=== PATIENT | male | born 1950 | race Caucasian/White ===

== ENCOUNTER 2020-12-27 19:42 | Emergency (ER) | payer MEDICARE, OTHER, SELFPAY ==
[2020-12-27 20:05] VITALS: BP 169/75; PULSE 64; RESP 16; TEMP 36.8; O2SAT 95; BMI 29.7
--- NOTE | 2020-12-27 22:10 | ED_ITS ---
HPI - Abdominal Pain General: Chief Complaint: Abdominal Pain Stated Complaint: Vomitting Time Seen by Provider: 12/27/20 22:01 Source: patient Mode of arrival: ambulatory Limitations: no limitations History of Present Illness: HPI narrative: Patient is a nice 70-year-old male who presents to ED today along with his for complaints of left abdominal and flank pain. Patient tells me around 11 AM this afternoon he began having fairly sudden onset left abdominal pain radiating into his left flank. He immediately began feeling nauseous secondary to the pain. He has had multiple episodes of nonbloody emesis. Patient is reporting normal bowel habits. He denies dysuria, frequency, urgency, hesitancy, or hematuria. He states he does have a history of kidney stones and states his symptoms today feel similar to what he has experienced in the past. No fevers. No trauma. MD elicited complaint: abdominal pain Pertinent past history: kidney stones Onset (ago): hour(s) Pain Consistency: constant Location: L flank Severity: severe Quality: sharp Radiation: LUQ, LLQ and L flank Exacerbating factors: nothing Relieving factors: nothing Associated Symptoms: Reports nausea and vomiting; Denies change in bowel habits, change in stool character, chills, constipation, diarrhea, dysuria, fever(s), heartburn and hematemesis Review of Systems Const: Denies: fever(s), chills, body aches, fatigue or malaise Eyes: Denies: change in vision Card: Denies: chest pain Resp: Denies: dyspnea GI: Reports: abdominal pain, nausea and vomiting; Denies: hematemesis, heartburn, diarrhea, constipation, change in bowel habits or change in stool character : Reports: flank pain; Denies: difficulty urinating, dysuria, urinary frequency, urinary urgency or urinary hesitancy Musc: Reports: back pain; Denies: neck pain, extremity pain, extremity swelling, joint pain or joint swelling Skin/Breast: Denies: rash Neuro: Denies: headache(s), numbness in extremities, weakness in extremities, sensory changes or dizziness Physical Exam Const: COMMON NORMALS: no acute distress, average body habitus, patient oriented x3, no limitations, healthy appearing, alert and well nourished GENERAL APPEARANCE: cooperative Chest: COMMONS NORMALS: normal inspection of the chest and normal palpation of entire chest wall Resp: COMMON NORMALS: normal respiratory effort and clear to auscultation bi laterally AUSCULTATION: clear to auscultation bilaterally Cardio: COMMON NORMALS: regular rate and regular rhythm RATE: regular rate RHYTHM: regular rhythm GI: COMMON NORMALS: Normal to inspection, nondistended, normoactive bowel sounds present, Soft to palpation, No hepatosplenomegaly present and no masses PALPATION: Yes Soft to palpation, Yes Tenderness to palpation present (GI) (mild left sided), No Guarding due to palpation present (GI), No Rigid due to palpation and Yes No hepatosplenomegaly present : BLADDER/KIDNEY EXAM: Yes CVA tenderness on the left Back/Pelvis: COMMON NORMALS: thoracic and lumbar spine normal to inspection, no thoracic nor lumbar tenderness and thoraco-lumbar ROM normal GENERAL BACK: Yes CVA tenderness Extremity: COMMON NORMALS: normal to inspection GENERAL: Yes normal exam except as noted Neuro: COMMON NORMALS: patient oriented x3 SENSORIUM/ORIENTATION: Yes alert Skin: COMMON NORMALS: no rashes or lesions noted GENERAL SKIN EXAM: no rashes or lesions noted TRAUMA: no lacerations or abrasions Course Vital Signs: Vital signs: Vital Signs Temperature 98.2 F 12/27/20 20:05 Pulse Rate 64 12/27/20 20:05 Respiratory Rate 16 12/27/20 23:37 Blood Pressure 169/75 12/27/20 20:05 Pulse Oximetry 100 12/27/20 23:37 MDM - Abdominal Pain MDM Narrative: Medical decision making narrative: Vital signs are stable. Labs are unremarkable. UA showing hematuria but no obvious infection. CT scan does show a 3.7 mm proximal ureter stone with moderate left hydro. Pain is controllable here. He states he is from [place] and will follow up with urology as soon as he returns-states they are headed back home tomorrow. Was given prescription for pain/nausea meds and Flomax. Given a urine strainer. Strict return to ED precautions given. Patient and verbalized understanding. Lab Data: Attestation: I reviewed the patient's lab results. Labs: Lab Results 12/27/20 12/27/20 12/27/20 Range/Units 22:44 22:44 22:59 WBC 11.8 H (4.0-10.0) 10^3/ uL RBC 5.06 (4.1-5.3) 10^6/u L Hgb 14.0 (11.7-16.6) g/dL Hct 43.7 (42.0-52.0) % MCV 86.4 (80-94) fL MCH 27.7 L (28.0-34.0) pg MCHC 32.0 (30.0-36.0) g/dL RDW 15.3 H (12.1-15.1) % Plt Count 232 (130-400) 10^3/c mm MPV 10.4 (7.4-10.4) fL Neut % (Auto) 84.9 % Lymph % (Auto) 7.5 % [place] % (Auto) 6.9 % Eos % (Auto) 0.1 % Baso % (Auto) 0.3 % Neut # (Auto) 10.01 H (1.8-7.7) 10^3/u L Lymph # (Auto) 0.9 (0.8-4.8) 10^3/u L [place] # (Auto) 0.8 (0.2-0.9) 10^3/u L Eos # (Auto) 0.0 (0.0-0.8) 10^3/u L Baso # (Auto) 0.0 (0.0-0.1) 10^3/u L Nucleated RBC % (a uto) 0 % Nucleated RBCs # 0.0 /100WBC Sodium 141 (136-145) mmol/L Potassium 4.0 (3.5-5.1) mmol/L Chloride 104 (98-107) mmol/L Carbon Dioxide 23 (22-29) mmol/L Anion Gap 18.0 (5-19) BUN 17 (8-23) mg/dL Creatinine 1.0 (0.7-1.2) mg/dL GFR Calculation Not Reportable Glucose 117 H (65-115) mg/dL Calculated Osmolal ity 295 (285-295) mOsm/k g Calcium 8.8 (8.5-10.5) mg/dL Total Bilirubin 1.9 H (0.15-1.2) mg/dL AST 27 (0-40) U/L ALT 22 (0-41) U/L Alkaline Phosphata se 73 (40-130) IU/L Total Protein 6.6 (6.6-8.7) g/dL Albumin 4.2 (3.5-5.2) g/dL Globulin 2.4 (1.3-4.6) g/dL Lipase 25 (13-60) U/L Urine Color Yellow (Yellow) Urine Appearance Clear (CLEAR) Urine pH 5 (5-7) Ur Specific Gravit y 1.020 (1.005-1.030) Urine Protein Neg (Negative) Urine Glucose (UA) Trace H (Normal) Urine Ketones 1+ H (Negative) Urine Blood 3+ H (Negative) Urine Nitrate Negative (Negative) Urine Bilirubin Neg (Negative) Urine Urobilinogen 1 H (Negative) mg/dL Ur Leukocyte Zari ase Negative (Negative) Urine RBC 25-40 H (0-2) /hpf Urine WBC 0-4 H (0-5) /hpf Ur Squamous Epith Cells 0-4 H (0-5) /hpf Amorphous Sediment Not Reportable Urine Bacteria Trace (NONE) /hpf Urine Mucus Trace /hpf Imaging Data ^: CT Abd/Pel: Radiologist's impression: [id number] [address] [address] Scan Report Signed Patient: Jemal Connors Unit #: [id number] : [id number] Age/Sex: 70 / M ADM Date: 12/27/20 Loc: ER Room/Bed: Attending Dr: Ordering Provider/Ordering MD: Yamel Kerr Date of Service: 12/27/20 Procedure(s): CT kidney stone 19345 Accession Number(s): [id number] Report Number: [id number] PROCEDURE INFORMATION: Exam: CT Abdomen And Pelvis Without Contrast Exam date and time: 12/27/2020 10:09 PM Age: 70 years old Clinical indication: Nausea and vomiting; Abdominal pain; Flank; Left; Additional info: L flank pain TECHNIQUE: Imaging protocol: Computed tomography of the abdomen and pelvis without contrast. Sagittal and coronal reformatted images were created and reviewed. Radiation optimization: All CT scans at this facility use at least one of these dose optimization techniques: automated exposure control; mA and/or kV adjustment per patient size (includes targeted exams where dose is matched to clinical indication); or iterative reconstruction. COMPARISON: No relevant prior studies available. RADIATION DOSE METRICS: Total DLP (mGy-cm): 1618.29 FINDINGS: Limitations: Evaluation of solid organs and vasculature is limited without intravenous contrast. This is standard protocol for evaluation of possible urolithiasis. Lungs: Visualized lungs are clear. Pleural spaces: No pleural effusion. Heart: Visualized portions of the heart are mildly enlarged. Liver: The liver is unremarkable. Gallbladder and bile ducts: The gallbladder is unremarkable. No biliary ductal dilatation. Pancreas: The pancreas is unremarkable. No pancreatic ductal dilatation. Spleen: The spleen is unremarkable. Adrenal glands: The right and left adrenal glands are unremarkable. Kidneys and ureters: Nonobstructing stone in the right kidney measuring 2.8 mm (series 2, image 35). The right ureter is unremarkable. 3.7 mm stone at the left proximal ureter with moderate left hydronephrosis and proximal hydroureter to the level of the stone and mild left perinephric/periureteral inflammation. Stomach and bowel: Numerous diverticula in the sigmoid colon. No evidence for diverticulitis. No acute abnormality in the small bowel. Small hiatal hernia. Appendix: The appendix is visualized and is unremarkable. No findings to suggest acute appendicitis. Intraperitoneal space: No free intraperitoneal air. No ascites. No loculated fluid collections to suggest an abscess. Vasculature: Moderate atherosclerotic calcification in the visualized coronary arteries. Moderate atherosclerotic changes in the visualized arteries. No evidence for aortic aneurysm. Lymph nodes: No lymphadenopathy. Urinary bladder: The bladder is incompletely filled, which can limit evaluation. No focal abnormality in the bladder however. Reproductive: Incidental note of an undescended right testis located in the right inguinal canal. The prostate gland is unremarkable. Bones/joints: Moderate degenerative changes at both the right and left hips. Multilevel degenerative changes of varying severity in the visualized spine. Mild scoliosis in the visualized spine. Mild spinal canal stenosis at L2-L3 and L3-L4. Multilevel foraminal stenosis of varying severity in the visualized spine. Soft tissues: The extra-abdominal soft tissues are unremarkable. CT/CT kidney stone [id number] IMPRESSION: 1. 3.7 mm stone at the left proximal ureter with moderate left hydronephrosis and proximal hydroureter to the level of the stone and mild left perinephric/periureteral inflammation. 2. Nonobstructing right renal stone. 3. 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 4. Sigmoid diverticulosis. No evidence for diverticulitis. 5. Small hiatal hernia. 6. Incidental/nonacute findings are listed in the report. Radiation Dose CTDIVOL = (mGy): DLP = 1618.29 (mGy-cm) Dictated By: Giselle Montanez MD Signed By: Giselle Montanez MD Signed Date/Time: 12/27/202323 DD/ 22 Discharge Plan Discharge Patient Disposition: Home Clinical Impression: Left ureteral stone Condition: Stable Prescriptions: New hydrocodone-acetaminophen 5-325 mg tablet 1 tab PO Q4H PRN (Reason: pain) Qty: 20 RF: 0 Zofran 4 mg tablet 4 mg PO Q6H PRN (Reason: nausea and vomiting) Qty: 14 RF: 0 Flomax 0.4 mg capsule 0.4 mg PO DAILY Qty: 10 RF: 0 Discharge Orders: Discharge ED (Routine); Ordered 12/27/20 Ordered By: Yamel Kerr Patient Instructions: Kidney Stones (ED) Activity Restrictions/Additional Instructions: As we discussed please follow-up with your urologist as soon as possible when you return home tomorrow. Push fluids and strain your urine as instructed. You need to seek medical reevaluation for worsening flank pain/abdominal pain, uncontrollable pain, inability to keep down your medications, fevers of greater than 100.4, inability to urinate, or any other concerns you may have. I hope you begin to feel better soon. Coding Level of Care Code ED Revenue Agent for Chg Fwd Exam Comprehensive
[2020-12-27 22:31] VITALS: RESP 20; O2SAT 97
[2020-12-27] MEDS: morphine 4 mg/mL SDV 1 mL IVP (22:31)
[2020-12-27] MEDS: sodium chloride 0.9% 1,000 ML 999 ML IV (22:32)
[2020-12-27] MEDS: ondansetron 2 mg/ML SDV 2 mL 4 MG IVP (22:32)
--- NOTE | 2020-12-27 22:35 | PC.NURSE ---
pt brought to room 5 by staff. at bedside. pt vomitting
[2020-12-27 22:52] LABS: Basophils % 0.3 %; Eosinophils % 0.1 %; Hematocrit 43.7 % (42.0-52.0); Lymphocytes # 0.9 10^3/uL (0.8-4.8); Lymphocytes % 7.5 %; Mean Corpuscular Hemoglobin 27.7 pg (28.0-34.0); Mean Corpuscular Volume 86.4 fL (80-94); Mean Platelet Volume 10.4 fL (7.4-10.4); Monocytes # 0.8 10^3/uL (0.2-0.9); Monocytes % 6.9 %; Neutrophils # 10.01 10^3/uL (1.8-7.7); Neutrophils % 84.9 %; Nucleated Red Blood Cells % 0 %; Platelet Count 232 10^3/cmm (130-400); Red Blood Count 5.06 10^6/uL (4.1-5.3); Red Cell Distribution Width 15.3 % (12.1-15.1); White Blood Count 11.8 10^3/uL (4.0-10.0)
[2020-12-27 23:00] VITALS: O2SAT 100
[2020-12-27 23:06] LABS: Alanine Aminotransferase 22 U/L (0-41); Albumin Level 4.2 g/dL (3.5-5.2); Alkaline Phosphatase 73 IU/L (40-130); Aspartate Amino Transferase 27 U/L (0-40); Blood Urea Nitrogen 17 mg/dL (8-23); Calcium 8.8 mg/dL (8.5-10.5); Carbon Dioxide 23 mmol/L (22-29); Chloride 104 mmol/L (98-107); Globulin 2.4 g/dL (1.3-4.6); Glucose 117 mg/dL (65-115); Lipase 25 U/L (13-60); Osmolality Calculated 295 mOsm/kg (285-295); Sodium 141 mmol/L (136-145); Total Bilirubin 1.9 mg/dL (0.15-1.2); Total Protein 6.6 g/dL (6.6-8.7)
[2020-12-27 23:19] LABS: Add Urine Culture? Yes; Add Urine Microscopic? YES; Bacteria Urine TRACE /hpf; Bilirubin Urine Neg (Negative); Blood Urine 3+ (Negative); Glucose Urine UA Trace (Normal); Ketones Urine 1+ (Negative); Leukocyte Esterase Urine Negative (Negative); Mucus Urine TRACE /hpf; Nitrate Urine Negative (Negative); Protein Urine Neg (Negative); RBC Urine 25-40 /hpf (0-2); Squamous Epithelial Cell Urine 0-4 /hpf (0-5); Urine Appearance Clear (CLEAR); Urine Color Yellow (Yellow); Urobilinogen Urine 1 mg/dL (Negative); WBC Urine 0-4 /hpf (0-5); pH Urine 5 (5-7)
[2020-12-27] MEDS: ketorolac 30 mg/mL INJ 15 MG IVP (23:36)
[2020-12-27 23:37] VITALS: RESP 16; O2SAT 100
[2020-12-27] MEDS: HYDROmorphone 1 mg/mL INJ 1 mL 0.5 MG IVP (23:37)
[2020-12-28] MEDS: HYDROcodone-acetaminophen 5-325 mg Tablet 2 TAB PO
[2020-12-28 00:02] VITALS: BP 128/53; PULSE 80; RESP 16; TEMP 36.6; O2SAT 100
== END 2020-12-28 00:05 | disposition home or self-care (01) ==
PROVIDERS: Emergency Medicine; Emergency Provider Physician Assistant
DX: N20.1 Calculus of ureter (principal)
CPT/HCPCS: 36415; 74176; 80053; 81001; 83690; 85025; 87086; 96361; 96374; 96375; 99284; J1170; J1885; J2270; J2405; J7030